=== PATIENT | female | born 1965 | race African-American/Black ===

== ENCOUNTER → 2016-11-26 | Outpatient (CLI) | payer BC ==
[~2016-11-26] MED LIST: HYDROCODON-ACE1 EAC9 PO; LASIX; LISINOPRIL; PRAVACHOL; VITAMIN D1000 UNI1
--- NOTE | ~2016-11-26 | ST ---
Unit #: [id number] #: [id number] Patient: SHANE VIRAMONTES [id number] [address] [id number] [id number] O MR#: [id number] NAME: SHANE VIRAMONTES. : 1965 SEX: F STUDY DATE/TIME: 11/26/2016 UNIT: [facility] ROOM: STUDY DESCRIPTION: Attending Physician: Vj Aldana M.D. Referring Physician: Vj Aldana M.D. Primary Care Physician: Akua Coto A.P.R.N. CARDIOLOGY REPORT EXAM Stress ECG. INDICATION Dyspnea, hypertension, dyslipidemia, chest pain, and palpitations. One pack per day smoker. SUMMARY The patient exercised on a Jeyson protocol to maximal effort. Patient stopped due to shortness of breath and fatigue. A total of 7 minutes 1 second of exercise. Heart rate increased from 87 to 154. Blood pressure increased from 118/80 to 180/76. Heart rate was 91%. The rest and stress ECG showed no diagnostic ST shifts, and there were no significant dysrhythmias or heart block noted. IMPRESSION 1. Fair exercise capacity based on the patient's age. 2. Normal heart rate response. 3. Hypertensive blood pressure response. 4. Normal stress ECG. 5. No chest pain noted. 6. No change in therapy based on this study. 1. Dictated by... Sade Belle/yohannes TD: 11/26/2016 19:06 JOB #: [id number] CARDIOLOGY REPORT X Vj Aldana MD CARDIOLOGY REPORT
== END | disposition home or self-care (01) ==
LOC: CEKG 08:23
DX: R00.2 Palpitations (principal); I51.7 Cardiomegaly
CPT/HCPCS: 93017; 93306